=== PATIENT | male | born 1955 | race Caucasian/White ===

== ENCOUNTER → 2020-08-14 | Outpatient (CLI) | payer OTHER ==
[~2020-08-14] MED LIST: AMLO1TAB25; ATOR1TAB19; B12-1CHW PO; CALC1TAB30 PO; FAMO40TA3; FERR325T3 PO; LOSA100T50; METF750T36; METO1TAB32; OMEP-218; PREG50CA2; RA M500C PO; ROPI0.253; SERT50TA29; TOLT2TAB12; TRUL10IN; VITA100T59 PO; VITMTA PO
== END ==
LOC: M LABSMTC 13:19
PROVIDERS: ATTEND Anesthesiology
DX: Z01.812 Encounter for preprocedural laboratory examination (principal); Z20.822 Contact with and (suspected) exposure to COVID-19

== ENCOUNTER 2020-08-19 08:58 | Day surgery (SDC) | payer OTHER ==
[~2020-08-19] VITALS: Ht 180.3 cm; Wt 121.6 kg
[~2020-08-19 08:58] MED LIST changes: +NS 1,000 ML IV ONE
[2020-08-19] MEDS ORDERED: LIDOCAINE 2% 100MG/5ML SDV (FOR ANES.) As Ordered ONE (10:08)
[2020-08-19] MEDS ORDERED: propofoL 200 MG/20 ML VIAL As Ordered ONE (10:08)
[2020-08-19] MEDS ORDERED: fentaNYL 100 MCG/2 ML INJECTION (J3010) As Ordered ONE (10:09)
--- NOTE | 2020-08-19 10:31 | ROOR ---
Patient Name: Vipin Jones Procedure Date: 08/19/2020 10:14 AM Date of : 1955 Age: 64 Room: [facility] Gender: Male Note Status: Finalized Procedure: Upper Endoscopy + Biopsies Indications: Heartburn, Endoscopy to assess diarrhea in patient suspected of having celiac disease Providers: Petar Wheat MD Referring MD: ZAIRE ELKINS MD Requesting Provider: Medicines: Monitored Anesthesia Care Complications: No immediate complications. Procedure: Pre-Anesthesia Assessment: - The heart rate, respiratory rate, oxygen saturations, blood pressure, adequacy of pulmonary ventilation, and response to care were monitored throughout the procedure. The Endoscope was introduced through the mouth, and advanced to the second part of duodenum. The upper GI endoscopy was accomplished without difficulty. The patient tolerated the procedure well. Findings: The Z-line was regular and was found 45 cm from the incisors. Evidence of a gastric bypass was found. A gastric pouch with a small size was found. The staple line appeared intact. The gastrojejunal anastomosis was characterized by healthy appearing mucosa. This was traversed. The uhnlc-na-lzlrumf limb was characterized by healthy appearing mucosa. Multiple biopsies were obtained with cold forceps for evaluation of celiac disease randomly in the efferent jejunal loop. The exam was otherwise without abnormality. Impression: - Z-line regular, 45 cm from the incisors. - Gastric bypass with a small-sized pouch and intact staple line. Gastrojejunal anastomosis characterized by healthy appearing mucosa. - The examination was otherwise normal. - Multiple biopsies were obtained in the efferent jejunal loop. - The examination was otherwise normal. Recommendation: - Patient has a contact number available for emergencies. The signs and symptoms of potential delayed complications were discussed with the patient. Return to normal activities tomorrow. Written discharge instructions were provided to the patient. - Resume previous diet. - Discharge patient to home. - Continue present medications. - Await pathology results. - Telephone GI clinic for pathology results in 1 week. - Return to referring physician. - The findings and recommendations were discussed with the patient. Procedure Code(s): --- Professional --- 98985, Esophagogastroduodenoscopy, flexible, transoral; with biopsy, single or multiple Diagnosis Code(s): --- Professional --- Z98.84, Bariatric surgery status R12, Heartburn R19.7, Diarrhea, unspecified CPT copyright 2019 [employer]. All rights reserved. The codes documented in this report are preliminary and upon forensic scientist review may be revised to meet current compliance requirements. Petar Wheat MD Petar Wheat MD 08/19/2020 10:31:10 AM Electronically signed by Petar Wheat MD Number of Addenda: 0 Note Initiated On: 08/19/2020 10:14 AM Estimated Blood Loss: Estimated blood loss: none.
--- NOTE | 2020-08-19 10:49 | ROOR ---
Patient Name: Vipin Jones Procedure Date: 08/19/2020 10:15 AM Date of : 1955 Age: 64 Room: [facility] Gender: Male Note Status: Finalized Procedure: Total Colonoscopy to Cecum + ileoscopy + Bx Indications: Clinically significant diarrhea of unexplained origin Providers: Petar Wheat MD Referring MD: ZAIRE ELKINS MD Requesting Provider: Medicines: Monitored Anesthesia Care Complications: No immediate complications. Procedure: Pre-Anesthesia Assessment: - The heart rate, respiratory rate, oxygen saturations, blood pressure, adequacy of pulmonary ventilation, and response to care were monitored throughout the procedure. The Colonoscope was introduced through the anus and advanced to the terminal ileum, with identification of the appendiceal orifice and IC valve. The colonoscopy was performed without difficulty. The patient tolerated the procedure well. The quality of the bowel preparation was good. Findings: The perianal and digital rectal examinations were normal. Non-bleeding internal hemorrhoids were found during retroflexion. The hemorrhoids were small and Grade I (internal hemorrhoids that do not prolapse). Retroflexion in the right colon was performed. The terminal ileum appeared normal. Biopsies for histology were taken with a cold forceps from the ascending colon, transverse colon, descending colon and rectosigmoid colon for evaluation of microscopic colitis. The exam was otherwise without abnormality on direct and retroflexion views. Impression: - Non-bleeding internal hemorrhoids. - The examined portion of the ileum was normal. - The examination was otherwise normal on direct and retroflexion views. - Biopsies were taken with a cold forceps from the ascending colon, transverse colon, descending colon and rectosigmoid colon for evaluation of microscopic colitis. - The exam was otherwise normal to the cecum. Recommendation: - Patient has a contact number available for emergencies. The signs and symptoms of potential delayed complications were discussed with the patient. Return to normal activities tomorrow. Written discharge instructions were provided to the patient. - High fiber diet. - Discharge patient to home. - Continue present medications. - Await pathology results. - Telephone GI clinic for pathology results in 1 week. - Repeat colonoscopy in 10 years for screening purposes. - Return to referring physician. - The findings and recommendations were discussed with the patient. Procedure Code(s): --- Professional --- 50454, Colonoscopy, flexible; with biopsy, single or multiple Diagnosis Code(s): --- Professional --- K64.0, First degree hemorrhoids R19.7, Diarrhea, unspecified CPT copyright 2019 [employer]. All rights reserved. The codes documented in this report are preliminary and upon senior production planner review may be revised to meet current compliance requirements. Petar Wheat MD Petar Wheat MD 08/19/2020 10:48:53 AM Electronically signed by Petar Wheat MD Number of Addenda: 0 Note Initiated On: 08/19/2020 10:15 AM Estimated Blood Loss: Estimated blood loss: none.
== END 2020-08-19 11:18 | disposition home or self-care (01) ==
LOC: M OPP 08:58
PROVIDERS: ATTEND Internal Medicine Gastroenterology
DX: K64.0 First degree hemorrhoids (principal); R19.7 Diarrhea, unspecified; Z98.84 Bariatric surgery status; R12 Heartburn; K21.9 Gastro-esophageal reflux disease without esophagitis; E11.9 Type 2 diabetes mellitus without complications; I10 Essential (primary) hypertension; Z79.84 Long term (current) use of oral hypoglycemic drugs; Z79.899 Other long term (current) drug therapy; Z91.048 Other nonmedicinal substance allergy status
CPT/HCPCS: 43239; 45380; 88305; J3010